=== PATIENT | female | born 1965 | race Caucasian/White ===

== ENCOUNTER 2017-06-20 09:59 | Day surgery (SDC) | payer OTHER ==
[2017-06-20] MEDS ORDERED: FENTAnyl 50 MCG/ML VIAL ×2 (11:07→14:07)
[2017-06-20] MEDS ORDERED: PROPOFOL 0 ML (11:07)
[2017-06-20] MEDS ORDERED: MIDAZOLAM 1 MG/ML 2 ML INJ ×4 (11:08→14:08)
== END 2017-06-20 14:50 | disposition home or self-care (01) ==
LOC: GIL 09:59
DX: Z12.11 Encounter for screening for malignant neoplasm of colon (principal); K64.4 Residual hemorrhoidal skin tags; I10 Essential (primary) hypertension
CPT/HCPCS: 45378